=== PATIENT | female | born 1970 | race Asian ===

== ENCOUNTER 2020-04-24 09:49 | Emergency (ER) | payer MEDICAID, OTHER ==
[~2020-04-24] VITALS: Ht 147.3 cm; Wt 70.0 kg
--- NOTE | 2020-04-24 09:58 | NUR ---
PATIENT HERE WITH CHIEF C/O OF RIGHT KNEE PAIN X1 DAY. KNEE IS SWOLLEN AND WARM TO TOUCH. PATIENT DENIES ANY TRAUMA OR INJURY TO KNEE. ER PA AT BEDSIDE FOR EVALUATION.
[2020-04-24] MEDS ORDERED: KETOROLAC 30 MG/1 ML ONE (10:10)
--- NOTE | 2020-04-24 10:17 | NUR ---
PATIENT MEDICATED PER [employer]. ENVIRONMENTAL HEALTH SAFETY ENGINEER AT BEDSIDE. CALL LIGHT WITHIN REACH, NO FURTHER NEEDS AT THIS TIME.
[2020-04-24] MEDS ORDERED: KETOROLAC 30 MG/1 ML IM ONE (10:30)
--- NOTE | 2020-04-24 10:39 | NUR ---
PATIENT TO X-RAY.
--- NOTE | 2020-04-24 11:00 | NUR ---
PATIENT LAYING IN GURNEY WITH EYES CLOSED, VITAL SIGNS WITHIN NORMAL LIMITS. DAUGHTER AT BEDSIDE. CALL LIGHT WITHIN REACH.
[2020-04-24 11:46] VITALS: BP 140/65
--- NOTE | 2020-04-24 11:51 | NUR ---
Patient and daughter given discharge instructions, prescription and work note and they have confirmed that they understand the instructions, no questions. All patient belongings gathered by patient. Patient ambulatory with use of cane, walked to discharge desk with theh elp of daughter.
== END 2020-04-24 11:52 | disposition home or self-care (01) ==
LOC: ED 10:37
DX: M25.562 Pain in left knee (principal); M25.561 Pain in right knee; X50.0XXA Overexertion from strenuous movement or load, initial encounter; Y93.89 Activity, other specified; Y92.69 Other specified industrial and construction area as the place of occurrence of the external cause; Y99.0 Civilian activity done for income or pay
CPT/HCPCS: 36415; 73564; 84550; 96372; 99284; J1885

== ENCOUNTER 2021-03-19 01:07 | Emergency (ER) | payer MEDICAID ==
[~2021-03-19] VITALS: Ht 147.3 cm; Wt 73.4 kg
--- NOTE | 2021-03-19 03:07 | NUR ---
MERCHANDISE FLOW TEAM LEADER: PT. TO ROOM FROM LOBBY AT THIS TIME.
--- NOTE | 2021-03-19 03:29 | NUR ---
PT C/O OF HEADACHE FROM RIGHT EYE TO BACK OF HEAD SINCE 1830. PT REPORTS SORE MUSCLES AND FATIGUED. DENIES HX OF STROKE AND SIEZURES, AND SPINNING ROOM. ATTACHED TO MONITORS, VSS. NADN. AMBULATED TO ROOM. CHANGED INTO GOWN. BED IN LOW. RAILS ENGAGED. CALL LIGHT ON LAP. TM
[2021-03-19 05:29] LABS: BASOPHILS % (AUTO) 1 % (0-1); EOSINOPHILS % (AUTO) 3 % (1-7); LYMPHOCYTES % (AUTO) 32 % (22-44); MEAN CORPUSCULAR HEMOGLOBIN 29.5 pg (27.0-34.8); MEAN CORPUSCULAR HGB CONC 33.4 g/dL (32.4-35.8); MONOCYTES % (AUTO) 7 % (2-9); NEUTROPHILS % (AUTO) 58 % (42-75); PLATELET COUNT 356 x10^3/uL (130-400); RED BLOOD COUNT 4.07 x10^6/uL (3.82-5.3); RED CELL DISTRIBUTION WIDTH 13.4 % (9.6-15.2)
[2021-03-19] MEDS ORDERED: METOCLOPRAMIDE 5 MG/ML, 2ML IVPush ONE (05:30)
[2021-03-19] MEDS ORDERED: KETOROLAC 30 MG/1 ML IVPush ONE (05:30)
[2021-03-19] MEDS ORDERED: SODIUM CHLORIDE FLUSH 10ML SYR IVF ONE (05:30)
[2021-03-19] MEDS ORDERED: DIPHENHYDRAMINE 50 MG/ML, 1ML IVPush ONE (05:30)
[2021-03-19] MEDS ORDERED: METOCLOPRAMIDE 5 MG/ML, 2ML ONE (05:40)
[2021-03-19] MEDS ORDERED: KETOROLAC 30 MG/1 ML ONE (05:40)
[2021-03-19] MEDS ORDERED: DIPHENHYDRAMINE 50 MG/ML, 1ML ONE (05:40)
[2021-03-19 05:41] LABS: ANION GAP 5 mmol/L (5-15); C-REACTIVE PROTEIN, QUANT 0.71 mg/dL (0.02-0.49); CALCIUM 8.3 mg/dL (8.5-10.1); CHLORIDE 109 mmol/L (98-107); CREATININE 0.58 mg/dL (0.55-1.02)
--- NOTE | 2021-03-19 05:46 | NUR ---
Patient is resting comfortably in bed. Bed in lowest, rails engaged, call light on lap. Vital Signs within normal limits. WCTM. TOLERATED MEDS WELL.
[2021-03-19 06:26] VITALS: BP 119/76
--- NOTE | 2021-03-19 06:57 | NUR ---
Patient/Caregiver given discharge instructions and they have confirmed that they understand the instructions. Patient ambulatory with steady gait. NAD, all questions answered appropriately, denies additional needs at this time. No personal belongings left in room after discharge.
== END 2021-03-19 06:59 | disposition home or self-care (01) ==
LOC: ED 05:50
DX: G44.219 Episodic tension-type headache, not intractable (principal); H53.149 Visual discomfort, unspecified
CPT/HCPCS: 36415; 80048; 82040; 85025; 86140; 96374; 96375; 99284; J1200; J1885; J2765